=== PATIENT | female | born 1975 | race Caucasian/White ===

== ENCOUNTER 2020-01-12 16:49 | Outpatient (RCR) | payer BC, SELFPAY | END 2020-01-12 16:55 | disposition home or self-care (01) | LOC: PT 16:49 | PROVIDERS: PCP Internal Medicine; Visit Provider Internal Medicine | DX: M54.2 Cervicalgia (principal) | CPT/HCPCS: 97163 ==

== ENCOUNTER → 2021-05-18 13:27 | Outpatient (CLI) | payer BC, SELFPAY | PROVIDERS: PCP Internal Medicine; Visit Provider Internal Medicine | DX: R92.8 Other abnormal and inconclusive findings on diagnostic imaging of breast (principal) ==

== ENCOUNTER → 2021-06-15 13:31 | Outpatient (CLI) | payer BC, SELFPAY ==
--- NOTE | 2021-06-15 13:34 | US_ITS ---
PROCEDURE INFORMATION: Exam: US Left Breast, Complete US Right Breast, Complete MG Bilateral Diagnostic Breast Tomosynthesis Exam date and time: 06/15/2021 1:34 PM Age: 45 years old Clinical indication: Patient recalled for further evaluation of both upper posterior breast TECHNIQUE: Imaging protocol: Complete ultrasound of all four quadrants of the Left breast and the retroareolar regions, including ultrasound of the axilla when performed. Complete ultrasound of all four quadrants of the Right breast and the retroareolar regions, including ultrasound of the axilla when performed. Bilateral Diagnostic tomosynthesis and 2D mammography including computer-aided detection (CAD) when performed. Unilateral or bilateral exam. COMPARISON: No relevant prior studies available. FINDINGS: MAMMOGRAPHY: Digital diagnostic spot compression views of the posterior third of both upper breast demonstrate normal overlapping fibroglandular structures that persistent mass lesion or asymmetry identified. 90 degree lateral views of both breasts demonstrate normal fibroglandular structures. ULTRASOUND: Sonographic images of both breast were obtained in the periareolar regions bilaterally. The areas of interest on mammography are posterior. Other findings: For PROCEDURE INFORMATION: IMPRESSION: Patient to be recalled for repeat bilateral breast ultrasound looking at entire quadrants and not just near the nipple at which time a full radiographic interpretation will be made ASSESSMENT: BI-RADS Category 0: Incomplete- Need Additional Imaging Evaluation and/or Prior Mammograms for Comparison
== END ==
PROVIDERS: PCP Internal Medicine; Visit Provider Internal Medicine
DX: R92.8 Other abnormal and inconclusive findings on diagnostic imaging of breast (principal)
CPT/HCPCS: 76641; 77062; 77066; G0279

== ENCOUNTER → 2021-07-20 09:58 | Outpatient (CLI) | payer BC, SELFPAY ==
--- NOTE | 2021-07-20 | US_ITS ---
PROCEDURE INFORMATION: Exam: US Left Breast, Complete US Right Breast, Complete Exam date and time: 07/20/2021 10:05 AM Age: 45 years old Clinical indication: Screening TECHNIQUE: Imaging protocol: Complete ultrasound of all four quadrants of the Left breast and the retroareolar regions, including ultrasound of the axilla when performed. Complete ultrasound of all four quadrants of the Right breast and the retroareolar regions, including ultrasound of the axilla when performed. COMPARISON: US BREAST LT COMPLETE 06/15/2021 2:25 PM FINDINGS: Breast: Sonographic images of both breasts including the retroareolar regions, all 4 quadrants and the axilla do not demonstrate any solid or cystic masses with the exception of an incidental subcutaneous lipoma in the left 12 o'clock axis measuring 0.9 cm in greatest dimension. Cursors were placed over normal fibroglandular structures in the left 1 o'clock axis 14 cm from the nipple.. No architectural distortion or acoustical shadowing. No skin thickening or axillary adenopathy. IMPRESSION: No sonographic evidence of malignancy. Annual mammographic screening is recommended unless otherwise clinically indicated. ASSESSMENT: BI-RADS Category 1: Negative
== END ==
PROVIDERS: PCP Internal Medicine; Visit Provider Internal Medicine
DX: R92.8 Other abnormal and inconclusive findings on diagnostic imaging of breast (principal)

== ENCOUNTER → 2021-08-02 09:42 | Outpatient (CLI) | payer BC, SELFPAY | PROVIDERS: PCP Internal Medicine; Visit Provider Nurse Practitioner | DX: U07.1 COVID-19 (principal) | CPT/HCPCS: C9803; U0003; U0005 ==

== ENCOUNTER → 2022-09-20 16:50 | Outpatient (CLI) | payer BC, SELFPAY ==
[2022-09-20 17:44] LABS: Anion Gap 12.7 mEq/L (5-15); Blood Urea Nitrogen 16 mg/dl (7-17); Calcium 9.1 mg/dl (8.4-10.2); Carbon Dioxide 25 mmol/L (22.0-30.0); Chloride 103 mmol/L (98-107); Estimated Glomerular Filt Rate 48 ml/min (>60); GFR (African American) 59 ML/MIN (>60); Glucose 120 mg/dl (74-100); Potassium 3.7 mmoL/L (3.5-5.1); Sodium 137 mmol/L (136-145)
== END ==
PROVIDERS: PCP Internal Medicine; Visit Provider Internal Medicine
DX: I10 Essential (primary) hypertension (principal)
CPT/HCPCS: 80048

== ENCOUNTER → 2023-01-10 17:22 | Outpatient (CLI) | payer BC, SELFPAY ==
[2023-01-10 17:50] LABS: Chloride 106 mmol/L (98-107); Potassium 3.8 mmoL/L (3.5-5.1); Sodium 140 mmol/L (136-145)
[2023-01-10 17:53] LABS: Anion Gap 11.8 mEq/L (5-15); Blood Urea Nitrogen 17 mg/dl (7-17); Calcium 9.5 mg/dl (8.4-10.2); Carbon Dioxide 26 mmol/L (22.0-30.0); Estimated Glomerular Filt Rate 67 ml/min (>60); GFR (African American) 82 ML/MIN (>60); Glucose 121 mg/dl (74-100)
== END ==
PROVIDERS: PCP Internal Medicine; Visit Provider Internal Medicine
DX: I10 Essential (primary) hypertension (principal); R79.89 Other specified abnormal findings of blood chemistry; M75.52 Bursitis of left shoulder
CPT/HCPCS: 80048

== ENCOUNTER → 2023-01-22 15:26 | Outpatient (CLI) | payer BC, SELFPAY ==
--- NOTE | 2023-01-22 15:33 | XR_ITS ---
FINAL REPORT CLINICAL HISTORY: Left shoulder bursitis COMPARISON: None FINDINGS: LEFT SHOULDER Two views demonstrate no acute fracture or dislocation. Mild AC joint and mild glenohumeral joint degenerative change. The visualized bony structures are well aligned. No soft tissue abnormality is seen. IMPRESSION: Degenerative change without acute process. Reviewed, Interpreted and Dictated by Balwinder Lakhani III, MD Transcribed by Dayana Kwok Authenticated and [facility]
== END ==
PROVIDERS: PCP Internal Medicine; Visit Provider Internal Medicine
DX: M75.52 Bursitis of left shoulder (principal)
CPT/HCPCS: 73030

== ENCOUNTER 2023-03-18 13:37 | Emergency (ER) | payer OTHER, BC, SELFPAY ==
[2023-03-18 13:38] VITALS: BP 163/106; PULSE 84; RESP 16; TEMP 36.7; O2SAT 93; BMI 40.2
--- NOTE | 2023-03-18 14:32 | HMH.EDGENADL ---
Discharge Plan Disposition Patient Disposition: Home, Self-Care Prescriptions Prescriptions: No Action sertraline 100 mg tablet 100 mg PO DAILY meloxicam 15 mg tablet 15 mg PO DAILY amlodipine 5 mg tablet 5 mg PO DAILY hydrochlorothiazide 25 mg tablet 25 mg PO DAILY Referrals Follow up/Referrals: Nba David MD [Primary Care Provider] - See instructions Activity Restrictions/Add. Instructions Additional Instructions/Restrictions: The Dermabond should fall off in 1 to 2 weeks please return with any concerns. Clinical Impressions Clinical Impression: Laceration of finger, index Instructions Patient Instructions: DI for Laceration Repair Discharge ED Provider: Yeny Vance General Adult HPI General Chief complaint: Wound/Laceration Stated complaint: WC10/10, lac on Rt pointer finger Time Seen by Provider: 03/18/23 14:24 Mode of Arrival: Ambulatory Source of Information: Patient Limitations: No Limitations Description of Symptoms (Recalled from ER Triage Doc. by RN): Patient reports cutting her right index finger on a sewing machine at work approx 20 minutes ago. History of Present Illness HPI narrative: Patient is a 47-year-old female here with a right index finger laceration after working with a sewing machine approximately 20 minutes ago. No other injuries patient is not up to date on tetanus vaccination. Related Data Home Medications Medication Instructions Recorded Confirmed amlodipine 5 mg tablet 5 mg PO DAILY 01/30/23 03/06/23 hydrochlorothiazide 25 mg tablet 25 mg PO DAILY 01/30/23 03/06/23 meloxicam 15 mg tablet 15 mg PO DAILY 01/30/23 03/06/23 sertraline 100 mg tablet 100 mg PO DAILY 01/30/23 03/06/23 Allergies Allergy/AdvReac Type Severity Reaction Status Date / Time INGREDIENT: NO KNOWN - NO Allergy Unknown Uncoded 03/06/23 15:22 KNOWN DRUG ALLERGY [facility] Disclaimer: The information contained in this section may have been updated after the patient was seen, as this information can be updated by other users. Social History Smoking Status: Never smoker alcohol intake: never substance use type: denies use current occupational status: unemployed Travel in the last 8 weeks: None ROS Obtained: Yes All systems reviewed & no additional complaints except as documented Physical Exam General General appearance: alert Respiratory Respiratory exam: Present normal lung sounds bilaterally Cardiovascular Cardiovascular exam: Present regular rate; Absent tachycardia Extremities Exam Extremities exam: Present other (1 cm curvilinear laceration over the right index finger very superficial tissue avulsion actively bleeding wound edges reapproximated well) Neurological Exam Neurological exam: Present alert Medical Decision Making Stepan Inquiry Pt receiving controlled substance: No Vital Signs: 03/18/23 13:38 Temperature 98.0 F Temperature Source Oral Pulse Rate [Radial] 84 Respiratory Rate 16 Blood Pressure [Right Arm] 163/106 H Blood Pressure Mean [Right Arm] 125 Blood Pressure Source [Right Arm] Automatic Cuff Blood Pressure Position [Right Arm] Sitting 02 Sat by Pulse Oximetry 93 L Oxygen Delivery Method Room Air Orders (Tests/Meds): ED MEDICATIONS Discontinued Medications Generic Name Dose Route Start Last Admin Trade Name Freq PRN Reason Stop Dose Admin Tetanus/Reduced Diphtheria/Acell Pertussis 0.5 ml 03/18/23 14:32 03/18/23 14:40 Tet/Diphth/Pert-Adult 0.5ml Syringe IM 03/18/23 14:33 0.5 ml .ONCE ONE Administration Medical Decision Narrative: 47-year-old female with a right index finger laceration irrigated it to prepare to put Dermabond over top of it but it started bleeding holding pressure right now wound edges are very well reapproximated this is a superficial tissue laceration and avulsion if and get the bleeding to stop Dermabond w
[2023-03-18 15:15] VITALS: BP 140/98; PULSE 77; RESP 20; TEMP 36.8; O2SAT 98
== END 2023-03-18 15:16 | disposition home or self-care (01) ==
PROVIDERS: Emergency Provider Student in an Organized Health Care Education/Training Program; PCP Internal Medicine
DX: S61.210A Laceration without foreign body of right index finger without damage to nail, initial encounter (principal)
CPT/HCPCS: 90715; 96372; 99283

== ENCOUNTER 2023-07-11 16:51 | Outpatient (CLI) | payer BC, SELFPAY ==
[2023-07-11 17:13] LABS: Basophils # 0.1 K/mm3 (0-0.2); Basophils % 0.8 % (0.1-2.0); Eosinophils # 0.1 K/mm3 (0.0-0.4); Hematocrit 40.9 % (37.0-47.0); Hemoglobin 13.9 g/dL (12.2-16.2); Lymphocytes # 2.2 K/mm3 (0.7-4.5); Lymphocytes % 27.7 % (10-50); Mean Corpuscular HGB Conc 33.8 g/dL (31.8-35.4); Mean Corpuscular Hemoglobin 27.6 pg (27.0-31.2); Mean Corpuscular Volume 81.5 fl (81-99); Mean Platelet Volume 8.8 fl (7.4-10.4); Monocytes # 0.4 K/mm3 (0.1-1.0); Monocytes % 5.3 % (1.7-9.3); Neutrophils # 5.3 K/mm3 (1.8-7.8); Platelet Count 397 K/mm3 (142-424); Red Blood Count 5.02 M/mm3 (4.20-5.40); Red Cell Distribution Width 15.1 % (11.5-17.5); White Blood Count 8.1 K/mm3 (4.8-10.8)
[2023-07-11 17:42] LABS: Alanine Aminotransferase 21 U/L (12-78); Albumin Level 4.2 g/dl (3.5-5.0); Albumin/Globulin Ratio 1.4 (1.1-1.8); Alkaline Phosphatase 88 U/L (38-126); Anion Gap 10.8 mEq/L (5-15); Aspartate Amino Transferase 22 U/L (14-36); Bilirubin,Total 0.4 mg/dl (0.2-1.3); Blood Urea Nitrogen 16 mg/dl (7-17); Calcium 9.5 mg/dl (8.4-10.2); Carbon Dioxide 25 mmol/L (22.0-30.0); Chloride 107 mmol/L (98-107); Chol/HDL Ratio 6.2 (1-3.5); Cholesterol 217 mg/dl (140-200); Estimated Glomerular Filt Rate 77 ml/min (>60); GFR (African American) 93 ML/MIN (>60); Globulin 3.1 g/dL (1.3-3.2); Glucose 87 mg/dl (74-100); HDL Cholesterol 35 mg/dl (40-60); Potassium 3.8 mmoL/L (3.5-5.1); Sodium 139 mmol/L (136-145); Total Protein,Serum 7.3 g/dl (6.3-8.2); Triglycerides 116 mg/dl (30-150); VLDL Cholesterol 23 mg/dL (0-40)
[2023-07-11 17:53] LABS: Direct LDL Cholesterol 143.08 mg/dL (100-129)
== END 2023-07-11 23:59 ==
LOC: LAB.DROPOF 16:52
PROVIDERS: PCP Internal Medicine; Visit Provider Internal Medicine
DX: I10 Essential (primary) hypertension (principal); E78.5 Hyperlipidemia, unspecified; E16.2 Hypoglycemia, unspecified; F41.9 Anxiety disorder, unspecified; F43.21 Adjustment disorder with depressed mood
CPT/HCPCS: 80053; 80061; 85025

== ENCOUNTER 2024-05-17 10:11 | Emergency (ER) | payer BC, SELFPAY ==
[2024-05-17 10:23] VITALS: BP 133/73; PULSE 79; RESP 18; TEMP 37.1; O2SAT 98; BMI 40.2
--- NOTE | 2024-05-17 10:26 | ED_ITS ---
Discharge Plan Disposition Patient Disposition: Home, Self-Care Condition: Good Prescriptions Prescriptions: New amoxicillin 500 mg capsule 500 mg PO TID 7 Days Qty: 21 0RF ondansetron 4 mg tablet,disintegrating 4 mg PO Q8H PRN (Reason: nausea and vomiting) Qty: 10 0RF No Action triamterene-hydrochlorothiazid 37.5-25 mg tablet 1 tab PO DAILY Qty: 90 1RF sertraline 100 mg tablet 100 mg PO DAILY Qty: 90 1RF amlodipine 5 mg tablet 5 mg PO DAILY Qty: 90 1RF valacyclovir 1 gram tablet 1,000 mg PO Q8H Qty: 30 0RF Referrals Follow up/Referrals: Nba David MD [Primary Care Provider] - See instructions Activity Restrictions/Add. Instructions Additional Instructions/Restrictions: *Monitor Temp, Over the counter Motrin or Tylenol as directed/as needed Tylenol every 4 hours and Motrin every 6 hours (as long as your family doctor has told you that you can take it) for fever or pain. and straight to ER if unable to lower temp less than 101.0 after medication given *Warm salt water gargles may help to soothe the throat *Throat Lozenges? *Warm fluids like tea with honey may help to soothe the throat? *Sleep elevated *Humidifier/Vaporizer *Flonase 2 sprays in each nostril daily but be aware that it may take 2-3 days before you notice improvement *Bromfed may cause drowsiness. Know how it effects you (your child) before driving, caring for small child, or sending your child to school. Not other antihistamines/allergy medications while taking bromfed Your throat swab was sent for culture. Those results are typically sent to [facility]. Be sure to follow up in 2-3 days with your family doctor/primary care physician if no improvement so they can review those result and treat if necessary. If you don?t have a primary care doctor, I recommend you get one but in the mean time, you will have to return to a walk in clinic Follow up IMMEDIATELY for new or worsening symptoms or no Noticeable improvement over the next 48-72 hours. 911 for difficulty breathing or swallowing Clinical Impressions Clinical Impression: Otitis media Instructions Patient Instructions: Middle Ear Infection, Sore Throat Print Language Print Language: French Discharge ED Provider: Nettie Love [facility] General Stated complaint: giovani throat, ear pain, cough, chills Mode of Arrival: Ambulatory Source of Information: Patient Time Seen by Provider: 05/17/24 10:27 Description of Symptoms (Recalled from Triage Doc. by RN): SORE THROAT, EAR ACHE, COUGH, CHILLS. HEENT Symptoms (Recalled from RN notes): Yes Resp Symptoms (Recalled from RN notes): Yes Skin Symptoms (Recalled from RN notes): No MS Symptoms (Recalled from RN notes): No Functional Status (Recalled from RN notes): WNL History of Present Illness Provider Complaint: Patient states that she has been sick for several days States that she has been having sore throat, ear pain, sinus congestion and cough States that her throat is raw and hurts when she swallows so today when she was still not feeling any better she came in to get checked Related Data Previous Rx's ?Medication ?Instructions ?Recorded amlodipine 5 mg tablet 5 mg PO DAILY #90 tabs 05/14/24 sertraline 100 mg tablet 100 mg PO DAILY #90 tabs 05/14/24 triamterene 37.5 1 tab PO DAILY #90 tabs 05/14/24 mg-hydrochlorothiazide 25 mg tablet valacyclovir 1 gram tablet 1,000 mg PO Q8H #30 tabs 05/14/24 amoxicillin 500 mg capsule 500 mg PO TID 7 days #21 caps 05/17/24 ondansetron 4 mg disintegrating 4 mg PO Q8H PRN nausea and 05/17/24 tablet vomiting #10 tabs Allergies Allergy/AdvReac Type Severity Reaction Status Date / Time No Known Allergies Allergy Verified 04/06/24 16:08 Worker's Comp Is this a Worker's Comp case?: No [facility] Disclaimer: The information contained in this section may have been updated after the patient was seen, as this information can be updated by other users. Social History Smoking Status: Never smoker alcohol intake: never substance use type: denies use current occupational status: unemployed Travel in the last 8 weeks: None ROS Obtained: Yes All systems reviewed & no additional complaints except as documented and Yes Systems reviewed as appropriate & no additional complaints e xcept as documented Constitutional Constitutional: Reports system reviewed and no additional complaints, except as documented, Reports as per HPI, Reports body ache and Reports chills ENT Ears, Nose, Mouth, and Throat: Reports system reviewed and no additional complaints, except as documented, Reports as per HPI, Reports otalgia, Reports nasal congestion, Reports nasal discharge and Reports sore throat Cardiovascular Cardiovascular: Reports system reviewed and no additional complaints, except as documented and Reports as per HPI Respiratory Respiratory: Reports system reviewed and no additional complaints, except as documented, Reports as per HPI and Reports cough Gastrointestinal Gastrointestingal: Reports system reviewed and no additional complaints, except as documented and as per HPI Physical Exam General General appearance: alert and in no apparent distress ENT ENT exam: Present mucous membranes moist Expanded ENT Exam TM/Canal exam: Right TM: erythema and bulging Nose exam: Present sinus tenderness Throat exam: Present other (Pharyngeal erthema noted with PND) Respiratory Respiratory exam: Present normal lung sounds bilaterally; Absent respiratory distress or wheezes Cardiovascular Cardiovascular exam: Present regular rate, normal rhythm and normal heart sounds Abdominal Exam Abdominal exam: Present soft and normal bowel sounds; Absent distention or tenderness Neurological Exam Neurological exam: Present alert, oriented X3 and normal gait Medical Decision Making Medical Records Screening: Per USPSTF and CDC recommendations, given the prevalence of disease in our region, it is our hospital?s policy to screen for HIV and viral Hepatitis for all patients aged 18 and over and those with ongoing risk factors. Stepan Inquiry Pt receiving controlled substance: No Stepan was queried for this patient: No Vital Signs: 05/17/24 10:23 Temperature 98.7 F Temperature Source Oral Pulse Rate [Left Radial] 79 Respiratory Rate 18 Blood Pressure [Left Arm] 133/73 Blood Pressure Mean [Left Arm] 93 02 Sat by Pulse Oximetry 94 L Lab Data Lab results reviewed: Yes I reviewed the patient's lab results.
[2024-05-17 10:32] LABS: UTC Influenza A Antigen Negative (Negative); UTC Strep Screen (Rapid) Negative (Negative)
[2024-05-17 10:33] LABS: UTC Influenza B Antigen Negative (Negative)
[2024-05-17 10:36] VITALS: BP 133/73; PULSE 79; RESP 18; TEMP 37.1
== END 2024-05-17 10:37 | disposition home or self-care (01) ==
PROVIDERS: Emergency Provider Nurse Practitioner; PCP Internal Medicine
DX: H66.90 Otitis media, unspecified, unspecified ear (principal); R07.0 Pain in throat; H92.09 Otalgia, unspecified ear; R05.9 Cough, unspecified; R09.81 Nasal congestion; R68.83 Chills (without fever)
CPT/HCPCS: 87804; 87880; 99212; G0381